=== PATIENT | female | born 1955 | race African-American/Black ===

== ENCOUNTER 2016-12-07 08:02 | Day surgery (SDC) | payer OTHER ==
[2016-12-03 10:13] LABS: Urine Bilirubin Negative (Negative); Urine Blood Negative /uL (Negative); Urine Color Yellow (Yellow); Urine Glucose Normal (Normal); Urine Ketone Negative (Negative); Urine Nitrite Negative (Negative); Urine RBC 1 /hpf (0 - 4); Urine Squamous Epithelial Cell FEW /hpf (<5); Urine Urobilinogen Normal (Negative)
[2016-12-03 10:14] LABS: Basophils # (auto) 0 uL; Basophils % (auto) 0.5 % (0.0-2.0); DEFINITIVE VIEW TRANSMISSION; Eosinophils # (auto) 0.2 uL; Hematocrit 40.5 % (36.0-46.0); Hemoglobin 12.9 g/dL (12.2-16.2); Lymphocytes # (auto) 2.7 uL; Lymphocytes % (auto) 39.8 % (10.0-50.0); Mean Corpuscular Hgb Conc. 31.8 g/dL (32.0-36.0); Mean Corpuscular Volume 84.9 fL (80.0-100.0); Monocytes # (auto) 0.7 uL; Monocytes % (auto) 9.8 % (0.0-12.0); Neutrophils # (auto) 3.2 uL; Neutrophils % (auto) 46.9 % (37.0-80.0); Platelet Count (auto) 319 10^3/uL (140-450); Red Cell Distribution Width 15.1 % (11.6-16.0); White Blood Cell 6.9 10^3/uL (4.4-10.8)
[2016-12-03 10:26] LABS: INR 1.06 (0.9-1.15); Partial Thromboplastin Time 27.2 sec (22.64-33.71); Prothrombin Time 10.9 sec (9.37-12.3)
[2016-12-03 10:43] LABS: Albumin 3.3 g/dL (3.4-5.0); BUN/Creatinine Ratio 15.5; Bilirubin, Total 0.3 mg/dL (0.2-1.0); Calcium 8.4 mg/dL (8.5-10.1); Potassium 3.4 mmol/L (3.5-5.1); Total Protein 7.6 g/dL (6.4-8.2)
[~2016-12-07] VITALS: Ht 152.4 cm; Wt 86.2 kg
[~2016-12-07 08:02] MED LIST: ALBUAER3 IN; COMIH INH; DICL1GEL26 TOP; FLUT1SPR5; FLUT250M2 INH; HYDR-2652 PO; LORA-622 PO; OMEP20CA5 OR; POTA20TA53 PO; TRAM50TA2 PO; TRAZ50TA2 PO; VERA240T17 PO
[2016-12-07] MEDS ORDERED: fentaNYL CITRATE 100 MCG/2 ML VL ONE (08:32)
[2016-12-07] MEDS ORDERED: PROPOFOL 10 MG/ML 20 ML IV ONE ×2 (08:33)
[2016-12-07] MEDS ORDERED: GLYCOPYRROLATE 0.2 MG/ML 1ML VIAL ONE (08:33)
[2016-12-07] MEDS ORDERED: ONDANSETRON HCL 4 MG/2 ML VIAL ONE (08:33)
[2016-12-07] MEDS ORDERED: KETOROLAC TROMETH 60MG/2ML VIAL IM ONE (08:33)
[2016-12-07 10:39] VITALS: BP 146/85
== END 2016-12-07 10:39 | disposition home or self-care (01) ==
LOC: GI 08:02
PROVIDERS: ATTEND Internal Medicine Gastroenterology
DX: Z12.11 Encounter for screening for malignant neoplasm of colon (principal); Z80.0 Family history of malignant neoplasm of digestive organs; J45.909 Unspecified asthma, uncomplicated; E66.9 Obesity, unspecified; Z98.51 Tubal ligation status; Z90.710 Acquired absence of both cervix and uterus
CPT/HCPCS: 36415; 45378; 80053; 81001; 85025; 85610; 85730; 88305; 88342; J1885; J2405; J2704; J3010; J7030

== ENCOUNTER 2016-12-08 19:49 | Emergency (ER) | payer OTHER ==
[~2016-12-08] VITALS: Ht 154.9 cm; Wt 86.2 kg
[2016-12-08 20:35] LABS: Hemoglobin 12.3 g/dL (12.2-16.2); SUSPECT VIEW TRANSMISSION
[2016-12-08 20:41] LABS: Mean Platelet Volume 9.5 fL (7.4-10.4)
[2016-12-08 20:46] LABS: Hematocrit 38.2 % (36.0-46.0); Mean Corpuscular Hemoglobin 27.5 pg (28.0-32.0); Mean Corpuscular Hgb Conc. 32.2 g/dL (32.0-36.0); Mean Corpuscular Volume 85.4 fL (80.0-100.0); Platelet Count (auto) 271 10^3/uL (140-450); Red Cell Distribution Width 13.9 % (11.6-16.0); White Blood Cell 6.3 10^3/uL (4.4-10.8)
[2016-12-08 20:49] LABS: Metamyelocytes % 0; Myelocytes % 0; Promyelocytes % 0; Reactive Lymphocytes 0
[2016-12-08 20:50] LABS: Albumin 3.5 g/dL (3.4-5.0); BUN/Creatinine Ratio 12.7; Bilirubin, Total 0.2 mg/dL (0.2-1.0); Potassium 3.2 mmol/L (3.5-5.1); Total Protein 7.3 g/dL (6.4-8.2)
[2016-12-08 21:31] VITALS: BP 171/94
[2016-12-08 22:30] LABS: Platelet Estimate Adequate; RBC Morphology Normal
== END 2016-12-08 21:51 | disposition home or self-care (01) ==
LOC: ER 19:52
DX: R33.9 Retention of urine, unspecified (principal); I10 Essential (primary) hypertension; Z46.6 Encounter for fitting and adjustment of urinary device; Z88.8 Allergy status to other drugs, medicaments and biological substances; Z79.899 Other long term (current) drug therapy
CPT/HCPCS: 36415; 51702; 80053; 85007; 85027

== ENCOUNTER → 2016-12-10 | Outpatient (CLI) | payer OTHER | END | disposition home or self-care (01) | LOC: LAB 09:41 | PROVIDERS: ATTEND Urology | DX: N39.41 Urge incontinence (principal) | CPT/HCPCS: 87086 ==

== ENCOUNTER → 2017-01-25 | Outpatient (CLI) | payer OTHER | END | disposition home or self-care (01) | LOC: LAB 11:52 | PROVIDERS: ATTEND Internal Medicine Gastroenterology | DX: K58.1 Irritable bowel syndrome with constipation (principal) | CPT/HCPCS: 36415; 82565; 84520 ==

== ENCOUNTER 2017-03-13 14:42 | Emergency (ER) | payer OTHER ==
[~2017-03-13] VITALS: Ht 152.4 cm; Wt 86.2 kg
[2017-03-13 15:17] VITALS: BP 99/60
[2017-03-13] MEDS ORDERED: HYDROcodone-ACET 5/325MG TAB PO ONE (17:30)
== END 2017-03-13 17:52 | disposition home or self-care (01) ==
LOC: ER 14:42
DX: S83.8X2A Sprain of other specified parts of left knee, initial encounter (principal); S09.90XA Unspecified injury of head, initial encounter; I10 Essential (primary) hypertension; Z88.8 Allergy status to other drugs, medicaments and biological substances; W01.0XXA Fall on same level from slipping, tripping and stumbling without subsequent striking against object, initial encounter; Y93.01 Activity, walking, marching and hiking; Y99.8 Other external cause status; Y92.89 Other specified places as the place of occurrence of the external cause
CPT/HCPCS: 70450; 73562

== ENCOUNTER → 2017-03-25 | Outpatient (CLI) | payer OTHER ==
[2017-03-25 11:41] LABS: Uric Acid 4.7 mg/dL (2.6-6.0)
[2017-03-25 11:46] LABS: Potassium 2.9 mmol/L (3.5-5.1)
[2017-03-25 15:15] LABS: Urine Bilirubin Negative (Negative); Urine Blood Negative /uL (Negative); Urine Color Yellow (Yellow); Urine Glucose Normal (Normal); Urine Hyaline Cast FEW /lpf (0 - 2); Urine Ketone Negative (Negative); Urine Mucus FEW (None Seen); Urine Nitrite Negative (Negative); Urine RBC 1 /hpf (0 - 4); Urine Squamous Epithelial Cell FEW /hpf (<5)
== END | disposition home or self-care (01) ==
LOC: LAB 10:15
PROVIDERS: ATTEND Internal Medicine
DX: I10 Essential (primary) hypertension (principal); E87.6 Hypokalemia
CPT/HCPCS: 36415; 80061; 81001; 82043; 84132; 84439; 84443; 84550; 86141

== ENCOUNTER 2017-04-22 17:15 | Emergency (ER) | payer OTHER ==
[~2017-04-22] VITALS: Ht 154.9 cm; Wt 86.2 kg
[2017-04-22 20:56] VITALS: BP 156/86
== END 2017-04-22 21:34 | disposition home or self-care (01) ==
LOC: ER 17:17
DX: R06.02 Shortness of breath (principal); R05 Cough; J45.909 Unspecified asthma, uncomplicated; I10 Essential (primary) hypertension; G89.29 Other chronic pain
CPT/HCPCS: 71020; 93005

== ENCOUNTER → 2017-07-13 | Outpatient (CLI) | payer OTHER ==
[~2017-07-13] MED LIST changes: -OMEP20CA5 OR; +OMEP20CA74 OR
== END | disposition home or self-care (01) ==
LOC: XYW 08:50
PROVIDERS: ATTEND Internal Medicine
DX: Z01.810 Encounter for preprocedural cardiovascular examination (principal)
CPT/HCPCS: 93306

== ENCOUNTER → 2017-08-11 | Outpatient (CLI) | payer OTHER ==
[~2017-08-11] MED LIST changes: +ADENOSINE 72 MG in GIVE UN-DILUTED 0 ML IV STA; +ALBUTEROL SULF 2.5 MG/0.5ML(0.5%) NEB SOLN ONE; +IPRATROPIUM BROM 0.5 MG/2.5ML INH SOL ONE
== END | disposition home or self-care (01) ==
LOC: XY 07:31
PROVIDERS: ATTEND Internal Medicine Cardiovascular Disease
DX: I20.9 Angina pectoris, unspecified (principal)
CPT/HCPCS: 78452; 93017; 94640; A9500; J0153

== ENCOUNTER → 2017-08-31 | Outpatient (CLI) | payer OTHER ==
[~2017-08-31] MED LIST changes: -ADENOSINE 72 MG in GIVE UN-DILUTED 0 ML IV STA; -ALBUTEROL SULF 2.5 MG/0.5ML(0.5%) NEB SOLN ONE; -IPRATROPIUM BROM 0.5 MG/2.5ML INH SOL ONE
== END | disposition home or self-care (01) ==
LOC: LAB 14:33
PROVIDERS: ATTEND Internal Medicine Cardiovascular Disease
DX: R00.0 Tachycardia, unspecified (principal); I12.9 Hypertensive chronic kidney disease with stage 1 through stage 4 chronic kidney disease, or unspecified chronic kidney disease; N18.2 Chronic kidney disease, stage 2 (mild)
CPT/HCPCS: 82088; 84244

== ENCOUNTER → 2017-09-29 | Outpatient (CLI) | payer OTHER ==
[~2017-09-29] MED LIST changes: -HYDR-2652 PO; +HYDR50TA15 PO
[2017-09-29 18:13] LABS: BUN/Creatinine Ratio 18.8; Potassium 3.7 mmol/L (3.5-5.1)
== END | disposition home or self-care (01) ==
LOC: LAB 15:22
PROVIDERS: ATTEND Internal Medicine Cardiovascular Disease
DX: I10 Essential (primary) hypertension (principal); J45.998 Other asthma
CPT/HCPCS: 36415; 80048; 83835; 84585

== ENCOUNTER → 2017-10-11 | Outpatient (CLI) | payer OTHER | END | disposition home or self-care (01) | LOC: LAB 12:23 | PROVIDERS: ATTEND Internal Medicine Cardiovascular Disease | DX: Z01.812 Encounter for preprocedural laboratory examination (principal) | CPT/HCPCS: 36415; 82565; 84520 ==

== ENCOUNTER → 2017-11-09 | Outpatient (CLI) | payer OTHER ==
[2017-11-09 13:04] LABS: BUN/Creatinine Ratio 16.8; Calcium 9.4 mg/dL (8.5-10.1); Potassium 4.4 mmol/L (3.5-5.1)
== END | disposition home or self-care (01) ==
LOC: LAB 11:48
PROVIDERS: ATTEND Internal Medicine Cardiovascular Disease
DX: I13.10 Hypertensive heart and chronic kidney disease without heart failure, with stage 1 through stage 4 chronic kidney disease, or unspecified chronic kidney disease (principal); N18.9 Chronic kidney disease, unspecified
CPT/HCPCS: 36415; 80048

== ENCOUNTER → 2018-01-17 | Outpatient (CLI) | payer OTHER | END | disposition home or self-care (01) | LOC: XY 07:57 | PROVIDERS: ATTEND Internal Medicine | DX: R10.9 Unspecified abdominal pain (principal) | CPT/HCPCS: 78226; A9537 ==

== ENCOUNTER → 2018-03-04 | Outpatient (CLI) | payer OTHER ==
[2018-03-04 09:27] LABS: Basophils # (auto) 0 uL; Basophils % (auto) 0.5 % (0.0-2.0); Eosinophils # (auto) 0.1 uL; Eosinophils % (auto) 2.1 % (0.0-7.0); Hematocrit 38.7 % (36.0-46.0); Hemoglobin 12.7 g/dL (12.2-16.2); Lymphocytes # (auto) 2.4 uL; Lymphocytes % (auto) 44.6 % (10.0-50.0); Mean Corpuscular Hemoglobin 28.9 pg (28.0-32.0); Mean Corpuscular Hgb Conc. 32.7 g/dL (32.0-36.0); Mean Corpuscular Volume 88.4 fL (80.0-100.0); Monocytes # (auto) 0.4 uL; Monocytes % (auto) 7.9 % (0.0-12.0); Neutrophils # (auto) 2.4 uL; Neutrophils % (auto) 44.9 % (37.0-80.0); Nucleated Red Blood Cells % 0.1 %; Platelet Count (auto) 302 10^3/uL (140-450); Red Blood Cells 4.38 10^6/uL (4.0-5.20); Red Cell Distribution Width 14.5 % (11.8-14.3); White Blood Cell 5.4 10^3/uL (4.4-10.8)
[2018-03-04 09:42] LABS: Urine Bacteria FEW /hpf (None Seen); Urine Blood Negative /uL (Negative); Urine Mucus FEW (None Seen); Urine Specific Gravity 1.024 (1.001-1.035); Urine WBC 8 /hpf (0 - 5)
[2018-03-04 09:59] LABS: Albumin 3.5 g/dL (3.4-5.0); BUN/Creatinine Ratio 18.3; Bilirubin, Total 0.4 mg/dL (0.2-1.0); Calcium 8.5 mg/dL (8.5-10.1); Potassium 4.6 mmol/L (3.5-5.1); Total Protein 7.9 g/dL (6.4-8.2)
== END | disposition home or self-care (01) ==
LOC: LAB 09:00
PROVIDERS: ATTEND Internal Medicine
DX: I12.9 Hypertensive chronic kidney disease with stage 1 through stage 4 chronic kidney disease, or unspecified chronic kidney disease (principal); N18.3 Chronic kidney disease, stage 3 (moderate); E55.9 Vitamin D deficiency, unspecified; J45.909 Unspecified asthma, uncomplicated
CPT/HCPCS: 36415; 80053; 80061; 81001; 82043; 83970; 84439; 84443; 84550; 85025; 85652

== ENCOUNTER 2018-03-28 07:43 | Emergency (ER) | payer OTHER ==
[~2018-03-28] VITALS: Ht 154.9 cm; Wt 86.2 kg
[~2018-03-28 07:43] MED LIST changes: +ETOD1TAB60 PO; +LINA290C PO; +SPIR50TA23 PO
[2018-03-28] MEDS ORDERED: CARISOPRODOL 350 MG TAB PO ONE (08:00)
[2018-03-28] MEDS ORDERED: KETOROLAC TROMETH 60MG/2ML VIAL IM ONE (08:00)
[2018-03-28 09:16] LABS: Basophils # (auto) 0 uL; Basophils % (auto) 0.3 % (0.0-2.0); Eosinophils # (auto) 0.1 uL; Hematocrit 35.1 % (36.0-46.0); Hemoglobin 11.5 g/dL (12.2-16.2); Lymphocytes # (auto) 2.1 uL; Lymphocytes % (auto) 26.1 % (10.0-50.0); Mean Corpuscular Hemoglobin 28.8 pg (28.0-32.0); Mean Corpuscular Hgb Conc. 32.7 g/dL (32.0-36.0); Mean Corpuscular Volume 88.2 fL (80.0-100.0); Monocytes # (auto) 0.7 uL; Neutrophils # (auto) 5.1 uL; Neutrophils % (auto) 63.6 % (37.0-80.0); Platelet Count (auto) 327 10^3/uL (140-450); Red Blood Cells 3.98 10^6/uL (4.0-5.20); Red Cell Distribution Width 14.3 % (11.8-14.3)
[2018-03-28 09:51] LABS: Albumin 3.5 g/dL (3.4-5.0); BUN/Creatinine Ratio 16.9; Bilirubin, Total 0.3 mg/dL (0.2-1.0); Calcium 8.7 mg/dL (8.5-10.1); Potassium 4.6 mmol/L (3.5-5.1); Total Protein 7.5 g/dL (6.4-8.2)
[2018-03-28 10:49] VITALS: BP 157/76
== END 2018-03-28 12:18 | disposition home or self-care (01) ==
LOC: ER 07:43
DX: M79.7 Fibromyalgia (principal); I10 Essential (primary) hypertension; J45.909 Unspecified asthma, uncomplicated; Z90.710 Acquired absence of both cervix and uterus; Z90.49 Acquired absence of other specified parts of digestive tract; Z90.89 Acquired absence of other organs
CPT/HCPCS: 36415; 73502; 80053; 85025; 96372; 99285; J1885

== ENCOUNTER → 2018-05-10 | Outpatient (CLI) | payer OTHER ==
[2018-05-10 09:56] LABS: Basophils # (auto) 0.1 uL; Eosinophils # (auto) 0.1 uL; Eosinophils % (auto) 2.6 % (0.0-7.0); Hematocrit 39.6 % (36.0-46.0); Hemoglobin 12.7 g/dL (12.2-16.2); Lymphocytes # (auto) 2.7 uL; Lymphocytes % (auto) 47.3 % (10.0-50.0); Mean Corpuscular Hemoglobin 28.3 pg (28.0-32.0); Mean Corpuscular Volume 88.3 fL (80.0-100.0); Monocytes # (auto) 0.4 uL; Monocytes % (auto) 7.8 % (0.0-12.0); Neutrophils # (auto) 2.4 uL; Neutrophils % (auto) 41.3 % (37.0-80.0); Nucleated Red Blood Cells % 0.1 %; Platelet Count (auto) 292 10^3/uL (140-450); Red Blood Cells 4.49 10^6/uL (4.0-5.20); Red Cell Distribution Width 14.1 % (11.8-14.3); White Blood Cell 5.7 10^3/uL (4.4-10.8)
[2018-05-10 10:27] LABS: Albumin 3.4 g/dL (3.4-5.0); BUN/Creatinine Ratio 15.3; Bilirubin, Total 0.2 mg/dL (0.2-1.0); Calcium 8.7 mg/dL (8.5-10.1); Potassium 3.8 mmol/L (3.5-5.1); Total Protein 7.8 g/dL (6.4-8.2)
== END | disposition home or self-care (01) ==
LOC: LAB 09:32
PROVIDERS: ATTEND Internal Medicine
DX: I12.9 Hypertensive chronic kidney disease with stage 1 through stage 4 chronic kidney disease, or unspecified chronic kidney disease (principal); N18.3 Chronic kidney disease, stage 3 (moderate); E55.9 Vitamin D deficiency, unspecified; D64.9 Anemia, unspecified; J44.9 Chronic obstructive pulmonary disease, unspecified; E66.01 Morbid (severe) obesity due to excess calories; M19.90 Unspecified osteoarthritis, unspecified site
CPT/HCPCS: 36415; 80053; 85025

== ENCOUNTER → 2018-12-15 | Outpatient (CLI) | payer OTHER ==
[~2018-12-15] MED LIST changes: -SPIR50TA23 PO; +SPIR50TA5 PO
[2018-12-15 15:58] LABS: Basophils # (auto) 0 uL; Basophils % (auto) 0.6 % (0.0-2.0); Eosinophils # (auto) 0.1 uL; Eosinophils % (auto) 2.6 % (0.0-7.0); Hematocrit 38.5 % (36.0-46.0); Hemoglobin 12.7 g/dL (12.2-16.2); Lymphocytes # (auto) 2.3 uL; Lymphocytes % (auto) 47.3 % (10.0-50.0); Mean Corpuscular Hemoglobin 29.5 pg (28.0-32.0); Mean Corpuscular Volume 89.2 fL (80.0-100.0); Monocytes # (auto) 0.5 uL; Monocytes % (auto) 10.4 % (0.0-12.0); Neutrophils # (auto) 1.9 uL; Neutrophils % (auto) 39.1 % (37.0-80.0); Nucleated Red Blood Cells % 0.2 %; Platelet Count (auto) 263 10^3/uL (140-450); Red Blood Cells 4.32 10^6/uL (4.0-5.20); Red Cell Distribution Width 14.2 % (11.8-14.3); White Blood Cell 4.9 10^3/uL (4.4-10.8)
== END | disposition home or self-care (01) ==
LOC: LAB 15:30
PROVIDERS: ATTEND Internal Medicine
DX: J45.909 Unspecified asthma, uncomplicated (principal)
CPT/HCPCS: 36415; 82785; 85025

== ENCOUNTER → 2018-12-23 | Outpatient (CLI) | payer OTHER | END | disposition home or self-care (01) | LOC: RT 08:35 | PROVIDERS: ATTEND Internal Medicine | DX: J45.909 Unspecified asthma, uncomplicated (principal) | CPT/HCPCS: 94010; 94640 ==

== ENCOUNTER → 2018-12-28 | Outpatient (CLI) | payer OTHER | END | disposition home or self-care (01) | LOC: XYW 08:25 | PROVIDERS: ATTEND Internal Medicine | DX: M87.051 Idiopathic aseptic necrosis of right femur (principal) | CPT/HCPCS: 93306 ==

== ENCOUNTER → 2019-05-03 | Outpatient (CLI) | payer OTHER ==
[~2019-05-03] MED LIST changes: -ETOD1TAB60 PO; -FLUT1SPR5; +GABA300C10 PO; -HYDR50TA15 PO; -LINA290C PO; -POTA20TA53 PO; -TRAM50TA2 PO; -TRAZ50TA2 PO
[2019-05-03 11:04] LABS: Basophils # (auto) 0.1 uL; Basophils % (auto) 1.1 % (0.0-2.0); Eosinophils # (auto) 0.2 uL; Eosinophils % (auto) 2.9 % (0.0-7.0); Hemoglobin 12.1 g/dL (12.2-16.2); Lymphocytes # (auto) 2.4 uL; Lymphocytes % (auto) 45.8 % (10.0-50.0); Mean Corpuscular Hemoglobin 28.5 pg (28.0-32.0); Mean Corpuscular Hgb Conc. 33.6 g/dL (32.0-36.0); Mean Corpuscular Volume 84.9 fL (80.0-100.0); Monocytes # (auto) 0.4 uL; Monocytes % (auto) 7.6 % (0.0-12.0); Neutrophils # (auto) 2.3 uL; Neutrophils % (auto) 42.6 % (37.0-80.0); Platelet Count (auto) 268 10^3/uL (140-450); Red Blood Cells 4.25 10^6/uL (4.0-5.20); Red Cell Distribution Width 14.8 % (11.8-14.3); White Blood Cell 5.3 10^3/uL (4.4-10.8)
[2019-05-03 11:19] LABS: Urine Bacteria MOD /hpf (None Seen); Urine Blood TRACE /uL (Negative); Urine Mucus FEW (None Seen); Urine Specific Gravity 1.024 (1.001-1.035); Urine WBC 12 /hpf (0 - 5)
[2019-05-03 11:44] LABS: Albumin 3.6 g/dL (3.4-5.0); Calcium 8.9 mg/dL (8.5-10.1); Potassium 3.8 mmol/L (3.5-5.1)
[2019-05-03 11:50] LABS: BUN/Creatinine Ratio 16.7; Bilirubin, Total 0.3 mg/dL (0.2-1.0)
== END | disposition home or self-care (01) ==
LOC: LAB 10:09
PROVIDERS: ATTEND Internal Medicine
DX: I10 Essential (primary) hypertension (principal); M85.80 Other specified disorders of bone density and structure, unspecified site
CPT/HCPCS: 36415; 80053; 80061; 81001; 82043; 82306; 84439; 84443; 85025; 85652

== ENCOUNTER 2019-07-18 13:13 | Emergency (ER) | payer OTHER ==
[~2019-07-18] VITALS: Ht 154.9 cm; Wt 86.2 kg
[2019-07-18 14:31] LABS: Hemoglobin 12.4 g/dL (12.2-16.2)
[2019-07-18 14:33] LABS: Hematocrit 38.4 % (36.0-46.0); Mean Corpuscular Hemoglobin 27.1 pg (28.0-32.0); Mean Corpuscular Hgb Conc. 32.4 g/dL (32.0-36.0); Mean Corpuscular Volume 83.9 fL (80.0-100.0); Platelet Count (auto) 283 10^3/uL (140-450); Red Blood Cells 4.58 10^6/uL (4.0-5.20); Red Cell Distribution Width 15.8 % (11.8-14.3); White Blood Cell 5.7 10^3/uL (4.4-10.8)
[2019-07-18 14:35] LABS: Band Neutrophils % (manual) 0; Basophils % (manual) 0 (0.0-2.0); Blast Cells 0; Metamyelocytes % 0; Myelocytes % 0; Promyelocytes % 0; Reactive Lymphocytes 0
[2019-07-18 14:44] LABS: Alanine Aminotransferase 17 U/L (13-56); Albumin 3.6 g/dL (3.4-5.0); Anion Gap 7 (5-15); Blood Urea Nitrogen 25 mg/dL (7-18); Calcium 9.1 mg/dL (8.5-10.1); Carbon Dioxide 26 mmol/L (21-32); Chloride 107 mmol/L (98-107); Glucose 87 mg/dL (74-106); Lipase 134 U/L (73-393); Potassium 4.1 mmol/L (3.5-5.1); Sodium 140 mmol/L (136-145)
[2019-07-18 14:50] LABS: Alkaline Phosphatase 139 U/L (45-117); Aspartate Aminotransferase 16 U/L (15-37); BUN/Creatinine Ratio 20.3; Bilirubin, Total 0.3 mg/dL (0.2-1.0); GFR African American 57 mL/min; GFR Non-African American 47 mL/min; Total Protein 8.4 g/dL (6.4-8.2)
[2019-07-18 15:21] LABS: Eosinophils % (manual) 3 (0-7); Lymphocytes % (manual) 51 (10.0-50.0); Monocytes % (manual) 8 (0-12)
[2019-07-18 17:12] LABS: Urine Bacteria MOD /hpf (None Seen); Urine Blood Negative /uL (Negative); Urine Mucus FEW (None Seen); Urine Specific Gravity 1.027 (1.001-1.035); Urine WBC 13 /hpf (0 - 5)
[2019-07-18 17:56] VITALS: BP 143/79
== END 2019-07-18 18:07 | disposition home or self-care (01) ==
LOC: ER 13:13
DX: N39.0 Urinary tract infection, site not specified (principal); N20.0 Calculus of kidney; I10 Essential (primary) hypertension; J45.909 Unspecified asthma, uncomplicated; Z88.6 Allergy status to analgesic agent; Z88.8 Allergy status to other drugs, medicaments and biological substances; Z90.710 Acquired absence of both cervix and uterus; Z90.89 Acquired absence of other organs
CPT/HCPCS: 36415; 74176; 80053; 81001; 83690; 84484; 85007; 85027; 93005

== ENCOUNTER → 2019-07-27 | Outpatient (CLI) | payer OTHER ==
[2019-07-27 15:29] LABS: Urine Bacteria NONE SEEN /hpf (None Seen); Urine Blood Negative /uL (Negative); Urine Specific Gravity 1.016 (1.001-1.035); Urine WBC 1 /hpf (0 - 5)
== END | disposition home or self-care (01) ==
LOC: LAB 14:52
PROVIDERS: ATTEND Internal Medicine
DX: N39.0 Urinary tract infection, site not specified (principal); I10 Essential (primary) hypertension
CPT/HCPCS: 81001

== ENCOUNTER 2019-08-17 16:44 | Inpatient (IN) | payer OTHER ==
[~2019-08-17] VITALS: Ht 152.4 cm; Wt 91.0 kg
[2019-08-17] MEDS ORDERED: SODIUM CHLORIDE 0.9% 1,000 ML IVB ONE (18:10)
[2019-08-17] MEDS ORDERED: KETOROLAC TROMETH 30 MG/ML 1ML VIAL IV ONE (18:15)
[2019-08-17 19:01] LABS: Basophils # (auto) 0.1 uL; Eosinophils # (auto) 0.1 uL; Eosinophils % (auto) 2.1 % (0.0-7.0); Hematocrit 34.9 % (36.0-46.0); Hemoglobin 11.3 g/dL (12.2-16.2); Lymphocytes # (auto) 3.1 uL; Lymphocytes % (auto) 48.4 % (10.0-50.0); Mean Corpuscular Hemoglobin 27.9 pg (28.0-32.0); Mean Corpuscular Hgb Conc. 32.5 g/dL (32.0-36.0); Mean Corpuscular Volume 86.1 fL (80.0-100.0); Monocytes # (auto) 0.7 uL; Monocytes % (auto) 11.1 % (0.0-12.0); Neutrophils # (auto) 2.4 uL; Neutrophils % (auto) 37.4 % (37.0-80.0); Nucleated Red Blood Cells % 0.1 %; Platelet Count (auto) 263 10^3/uL (140-450); Red Blood Cells 4.06 10^6/uL (4.0-5.20); Red Cell Distribution Width 16.2 % (11.8-14.3); White Blood Cell 6.5 10^3/uL (4.4-10.8)
[2019-08-17 19:16] LABS: Albumin 3.4 g/dL (3.4-5.0); BUN/Creatinine Ratio 13.6; Calcium 8.7 mg/dL (8.5-10.1); Magnesium 2.4 mg/dL (1.6-2.6); Potassium 4.1 mmol/L (3.5-5.1)
[2019-08-17 19:19] LABS: Bilirubin, Total 0.2 mg/dL (0.2-1.0); Total Protein 7.5 g/dL (6.4-8.2)
[2019-08-17] MEDS ORDERED: HYDROcodone-ACET 5/325MG TAB PO PRN (21:15)
[2019-08-17] MEDS ORDERED: ALBUTEROL SULF 2.5 MG/0.5ML(0.5%) NEB SOLN NEB PRN (21:15)
[2019-08-17] MEDS ORDERED: TEMAZEPAM 15 MG CAP PO PRN (21:15)
[2019-08-17 21:28] LABS: Urine Bacteria MOD /hpf (None Seen); Urine Blood Negative /uL (Negative); Urine Mucus FEW (None Seen); Urine Specific Gravity 1.025 (1.001-1.035); Urine WBC 10 /hpf (0 - 5)
[2019-08-17] MEDS ORDERED: cefTRIAXone 1GM/50ML D5W 50 ML IV ONE (22:00)
[2019-08-17] MEDS: MORPHINE SULFATE 4 MG/ML SYR/VIAL IV PRN ×2 (22:24→22:46)
[2019-08-17] MEDS: GABAPENTIN 300 MG CAP PO SCH (22:24)
[2019-08-17] MEDS: ONDANSETRON HCL 4 MG/2 ML VIAL IV PRN (22:25)
[2019-08-17 22:54] VITALS: BP 165/85
--- NOTE | 2019-08-17 22:54 | NUR ---
MS admit from ER JAMEELYAS admitted to tele/MS after SBAR received from Greg XIE in the ER. Patient oriented to Rito Bolton, primary RN, unit, room, bed, and unit policies regarding patient care and visiting hours. Patient weighed by bedscale and encouraged to call if they need something. All questions and concerns addressed, patient verbalized understanding.
[2019-08-17 23:21] VITALS: BP 166/85
--- NOTE | 2019-08-17 23:27 | NUR ---
PT WAS ASSESSED FOR PRN TX. PT IS RESTING WITH NO DISTRESS NOTED. PT DENIES ANY SOB. TX IS NOT INDICATED AT THIS TIME, PT IS AWARE TO PAGE IF TX NEEDED. POX 96% ON ROOM AIR. RR 20 HR 73. B/S CLEAR.
[2019-08-17 23:29] VITALS: BP 166/85
--- NOTE | 2019-08-18 04:15 | NUR ---
BLOOD PRESSURE REASSESSMENT Patient's blood pressure is 135/85, heart rate 81, RR 16, SPO2 96%, and temp 98.3.
[2019-08-18 06:17] LABS: Basophils # (auto) 0 uL; Basophils % (auto) 0.7 % (0.0-2.0); Eosinophils # (auto) 0.1 uL; Eosinophils % (auto) 2.4 % (0.0-7.0); Hematocrit 32.4 % (36.0-46.0); Hemoglobin 10.7 g/dL (12.2-16.2); Lymphocytes # (auto) 2.3 uL; Lymphocytes % (auto) 50.1 % (10.0-50.0); Mean Corpuscular Hemoglobin 28.4 pg (28.0-32.0); Monocytes # (auto) 0.5 uL; Neutrophils # (auto) 1.6 uL; Neutrophils % (auto) 34.8 % (37.0-80.0); Nucleated Red Blood Cells % 0.1 %; Platelet Count (auto) 243 10^3/uL (140-450); Red Blood Cells 3.77 10^6/uL (4.0-5.20); White Blood Cell 4.6 10^3/uL (4.4-10.8)
[2019-08-18 06:38] LABS: Potassium 3.6 mmol/L (3.5-5.1)
[2019-08-18 06:45] LABS: BUN/Creatinine Ratio 14.2; Calcium 8.1 mg/dL (8.5-10.1)
--- NOTE | 2019-08-18 07:40 | NUR ---
Opening Shift Note Assumed care of patient, awake and alert x4. No S/S of distress/SOB, lower abdominal pain of 5/10, will medicate with pain meds per MD order. Respirations are even and unlabored on RA. Updated on POC and instructed to call for assistance as needed, patient verbalized understanding. Bed locked in lowest position, side rails up x2, call light within reach. Will continue to monitor for changes Q1hr and PRN.
[2019-08-18] MEDS: MORPHINE SULFATE 4 MG/ML SYR/VIAL IV PRN ×2 (08:24→18:08)
--- NOTE | 2019-08-18 08:56 | NUR ---
PT. ASSESSED FOR PRN. MN. TX., NO RESP. DISTRESS OR SOB NOTED. BS. ARE CLEAR AND DIMINISHED AT THE BASES. HR=76,RR=14,SP02=96% ON RA. MN. TX. NOT INDICATED AT THIS TIME, NO TX. GIVE. PT. IS AWARE SHE MAY CALL IF NEEDED.
[2019-08-18 09:00] VITALS: BP 173/81
[2019-08-18] MEDS ORDERED: cefTRIAXone 1GM/50ML D5W 50 ML IV SCH (09:00)
[2019-08-18] MEDS ORDERED: PANTOPRAZOLE 40 MG TAB PO SCH (10:00)
[2019-08-18] MEDS: ONDANSETRON HCL 4 MG/2 ML VIAL IV PRN ×2 (10:08→18:08)
[2019-08-18] MEDS: GABAPENTIN 300 MG CAP PO SCH ×2 (10:10→21:33)
[2019-08-18] MEDS: SPIRONOLACTONE 25 MG TAB PO SCH (10:11)
[2019-08-18] MEDS: VERAPAMIL HCL 120 mg ER tab PO SCH (10:11)
--- NOTE | 2019-08-18 11:30 | NUR ---
SPOKE WITH UROLOGIST DR. HUA HE WILL COME SEE THE PATIENT LATER ON TODAY AND INSTRUCTED TO PROVIDE THE PATIENT WITH A STRAINER FOR ALL URINE. WILL FOLLOW THROUGH WITH ORDERS.
[2019-08-18 13:00] VITALS: BP 146/69
[2019-08-18] MEDS ORDERED: HYOSCYAMINE SULF 0.125 MG ODT TAB PO PRN (13:45)
[2019-08-18 14:42] LABS: INR 0.96 (0.9-1.15)
[2019-08-18] MEDS: ACETAMINOPHEN 325 MG TAB PO PRN (16:42)
--- NOTE | 2019-08-18 16:42 | NUR ---
PT. C/O HEADACHE PAIN 07/08, REQUESTING TYLENOL FOR PAIN MEDICATION. WILL ADMINISTER PER MD ORDERS.
[2019-08-18 17:00] VITALS: BP 160/79
--- NOTE | 2019-08-18 18:45 | NUR ---
Care endorsed to Day shift nurse. No distress noted at this time.
--- NOTE | 2019-08-18 19:35 | NUR ---
Opening Shift Note Assumed care of patient, awake and alert. No S/S of distress/SOB or pain. Patient states that she feels nauseous but did not request any PRN Zofran. Instructed on POC and to call for assist PRN, will continue to monitor for changes Q1hr and PRN.
--- NOTE | 2019-08-18 21:10 | NUR ---
Respiratory note:PT ASSESSED FOR PRN MED NEB TX. HR 83, RR 14, SPO2 95% ON R/A. NO SIGNS OF ANY RESPIRATORY DISTRESS NOTED. ADVISED PT TO CALL IF TX IS NEEDED. RT NAME AND PAGER NUMBER WRITTEN ON PT'S BOARD.
[2019-08-18] MEDS: PANTOPRAZOLE 40 MG TAB PO SCH (21:33)
[2019-08-18 21:48] VITALS: BP 153/73
[2019-08-19 05:27] VITALS: BP 147/60
[2019-08-19 07:15] LABS: Calcium 8.3 mg/dL (8.5-10.1); Potassium 3.7 mmol/L (3.5-5.1)
[2019-08-19] MEDS ORDERED: FLUMAZENIL 0.1 MG/ML INJ 10ML MDV IV ONE (08:51)
[2019-08-19] MEDS ORDERED: NALOXONE HCL 0.4 MG/ML VIAL ONE (08:51)
[2019-08-19] MEDS ORDERED: SODIUM CHLORIDE LOCK 10 ML ONE (08:51)
[2019-08-19] MEDS ORDERED: LIDOCAINE VISCOUS 2% 15ML UD ONE (08:52)
[2019-08-19] MEDS ORDERED: diphenhdrAMINE HCL 50 MG/1 ML VL ONE (08:52)
[2019-08-19 09:00] VITALS: BP 153/75
[2019-08-19] MEDS: MIDAZOLAM HCL 5 MG/ML-1ML VIAL ONE ×2 (09:08→09:11)
[2019-08-19] MEDS: fentaNYL CITRATE 100 MCG/2 ML VL ONE ×2 (09:08→09:11)
--- NOTE | 2019-08-19 10:14 | NUR ---
PT RETURNED TO FLOOR FROM EGD. PT RESTING IN BED, NO DISTRESS NOTED. VITALS:97.4, 167/82, HR 91, 02 97, RR 18. WILL A.M. BP MEDS.
[2019-08-19] MEDS: GABAPENTIN 300 MG CAP PO SCH ×2 (10:20→22:40)
[2019-08-19] MEDS: PANTOPRAZOLE 40 MG TAB PO SCH ×2 (10:20→22:40)
[2019-08-19] MEDS: SPIRONOLACTONE 25 MG TAB PO SCH (10:20)
[2019-08-19] MEDS: VERAPAMIL HCL 120 mg ER tab PO SCH (10:20)
[2019-08-19] MEDS: SUCRALFATE 1 GM/10 ML ORAL SUSP PO SCH ×3 (10:22→22:40)
--- NOTE | 2019-08-19 12:40 | NUR ---
Respiratory note: MEDNEB CHECK. PT IN NO RESPIRATORY DISTRESS. SPO2 96% ON RA HR 65 RR 20 B/S CLEAR. TX NOT INDICATED AT THIS TIME. PT AWARE TO HAVE RT PAGED IF THEY BECOME SOB.
[2019-08-19 13:00] VITALS: BP 141/71
[2019-08-19] MEDS: MORPHINE SULFATE 4 MG/ML SYR/VIAL IV PRN (16:24)
[2019-08-19] MEDS: ONDANSETRON HCL 4 MG/2 ML VIAL IV PRN (16:25)
[2019-08-19 17:00] VITALS: BP 158/68
[2019-08-19] MEDS ORDERED: cefTRIAXone 1GM/50ML D5W 50 ML IV ONE (17:15)
[2019-08-19] MEDS ORDERED: hydrALAZINE HCL 20 MG/ML VL IV PRN (17:30)
--- NOTE | 2019-08-19 18:06 | NUR ---
SENIOR COURTROOM CLERK REPORTS PT BP IS 158/60, HR 94. REASSESSED BP. BP IS 150/71, HR 81. WILL CONTINUE TO MONITOR.
--- NOTE | 2019-08-19 19:05 | NUR ---
PT ASSESSED FOR PRN TX. PT IS RESTING WITH NO DISTRESS NOTED. PT DENIES SOB. TX NOT INDICATED AT THIS TIME. PT IS AWARE TO PAGE IF TX NEEDED. HR 78 RR 20 POX 91% ON ROOM AIR. B/S CLEAR.
--- NOTE | 2019-08-19 19:10 | NUR ---
Opening Shift Note Assumed care of patient, awake and alert. No S/S of distress/SOB or pain. Instructed on POC and to call for assist PRN, will continue to monitor for changes Q1hr and PRN.
[2019-08-19 22:00] VITALS: BP 124/76
[2019-08-20 05:49] VITALS: BP 121/74
[2019-08-20] MEDS: SUCRALFATE 1 GM/10 ML ORAL SUSP PO SCH ×4 (06:55→21:52)
[2019-08-20 06:56] LABS: Basophils # (auto) 0 uL; Basophils % (auto) 0.3 % (0.0-2.0); Eosinophils # (auto) 0.1 uL; Eosinophils % (auto) 1.7 % (0.0-7.0); Hematocrit 33.5 % (36.0-46.0); Hemoglobin 10.9 g/dL (12.2-16.2); Lymphocytes # (auto) 1.9 uL; Lymphocytes % (auto) 40.7 % (10.0-50.0); Mean Corpuscular Hgb Conc. 32.5 g/dL (32.0-36.0); Mean Corpuscular Volume 86.1 fL (80.0-100.0); Monocytes # (auto) 0.4 uL; Monocytes % (auto) 9.1 % (0.0-12.0); Neutrophils # (auto) 2.3 uL; Neutrophils % (auto) 48.2 % (37.0-80.0); Nucleated Red Blood Cells % 0.1 %; Platelet Count (auto) 231 10^3/uL (140-450); Red Blood Cells 3.89 10^6/uL (4.0-5.20); Red Cell Distribution Width 16.2 % (11.8-14.3); White Blood Cell 4.8 10^3/uL (4.4-10.8)
[2019-08-20 07:10] LABS: Albumin 2.9 g/dL (3.4-5.0); Calcium 8.2 mg/dL (8.5-10.1); Potassium 3.6 mmol/L (3.5-5.1)
[2019-08-20 07:14] LABS: BUN/Creatinine Ratio 13.6; Bilirubin, Total 0.2 mg/dL (0.2-1.0); Total Protein 6.6 g/dL (6.4-8.2)
[2019-08-20 09:00] VITALS: BP 135/75
[2019-08-20] MEDS: cefTRIAXone 1GM/50ML D5W 50 ML IV SCH (09:46)
[2019-08-20] MEDS: VERAPAMIL HCL 120 mg ER tab PO SCH (09:47)
[2019-08-20] MEDS: GABAPENTIN 300 MG CAP PO SCH ×2 (09:48→21:52)
[2019-08-20] MEDS: SPIRONOLACTONE 25 MG TAB PO SCH (09:48)
[2019-08-20] MEDS: PANTOPRAZOLE 40 MG TAB PO SCH ×2 (09:48→21:52)
[2019-08-20] MEDS: ONDANSETRON HCL 4 MG/2 ML VIAL IV PRN ×2 (10:43→17:07)
[2019-08-20] MEDS: MORPHINE SULFATE 4 MG/ML SYR/VIAL IV PRN ×2 (10:43→17:07)
--- NOTE | 2019-08-20 11:35 | NUR ---
RT NOTE: WENT TO PTS ROOM TO ASSESS PRN BREATHING TX, NO S/S OF SOB. HR 77, RR 18, SPO2 96% ON RA. WILL CONTINUE TO MONITOR PT.
--- NOTE | 2019-08-20 12:03 | NUR ---
PT REPORTS IV HURTS. ASSESSED IV SITE, SMALL AMOUNT OF SWELLING AND ERYTHEMA NOTED AT SITE. IV DC'D AND PRESSURE DRESSING APPLIED. NEW IV STARTED USING STERILE TECHNIQUE ON THIRD ATTEMPT WITH VEIN FINDER. NEW IV IS LEFT WRIST 22 G, FLUSHED WITH 0.9 NS. PT TOLERATED PROCEDURE WELL, WILL CONTINUE TO MONITOR.
[2019-08-20 13:00] VITALS: BP 145/84
--- NOTE | 2019-08-20 15:17 | NUR ---
PT IV LEAKING WHEN TRYING TO ADMINISTER PRN BP MED. IV DC'D, PRESSURE DRESSING APPLIED. ATTEMPTED NEW IV X2 WITH VEIN FINDER USING STERILE TECHNIQUE, UNSUCCESSFUL. SPOKE WITH CHARGE. CHARGE INSERTED NEW IV USING STERILE TECHNIQUE RFA 22 G. PT TOLERATED PROCEDURE WELL. PRN BP MED GIVEN FOR BP 172/77, HR 74. PT REPORTS SHE HAS ONLY VOIDED ONCE YESTERDAY AND ONCE TODAY. SPOKE WITH DR RASHID, NOTIFIED PT ON DIURETIC WITH HIGH BP AND HAS VOIDED ONCE A DAY. AWARE. REPOTS HE WILL PUT IN ORDER FOR ULTRASOUND, WILL CONTINUE TO MONITOR. Addendum: 08/20/19 at 1523 by AUDELIA BROCK RN NO STONES HAVE BEEN FOUND WHEN STRAINING PT URINE.
--- NOTE | 2019-08-20 16:11 | NUR ---
BOARD TURNER REPORTS PT IS POSITIVE FOR RIGHT LEG DVT. CALLED PBX AND PAGED DR RASHID. CALLED BACK. NOTIFIED MD PALENCIA RLE DVT. NEW ORDERS FOR COUMADIN PER PHARMACY PROTOCOL AND LOVENOX.
--- NOTE | 2019-08-20 16:19 | NUR ---
CALLED PHARMACY AND CLARIFIED COUMADIN AND LOVENOX ORDERS AND REPORTED TO PHARMACY THERAPY NEEDS TO START TODAY PER MD ORDER.
--- NOTE | 2019-08-20 16:29 | NUR ---
PHARMACY CALLED. PT HAS ADVERSE REACTION TO COUMADIN. PHARMACY REPORTS THEY NEED CLARIFICATION OF PATIENT REACTION WHEN SHE TAKES COUMADIN. ASKED PATIENT WHAT REACTION SHE HAS WHEN SHE TAKES COUMADIN. PT REPORTS SHE GETS LARGE BRUISES. ASKED PT IF SHE GETS ANY OTHER SYMPTOMS, SOB, DIFFICULTY BREATHING, RASHES, ECT.. PT REPORTS,"NO JUST LARGE BRUISES." PHARMACY NOTIFIED. PHARMACY REPORTS TO MONITOR PATIENT AND LET DR RASHID KNOW. CALLED PBX AND PAGED DR RACHID MD NOTIFIED OF PT REACTION TO COUMADIN. REPORTS TO KEEP PATIENT ON COUMADIN AND LOVENOX WITH PATIENT PERMISSION. ASKED PT PERMISSION TO PUT HER ON THERE MEDICATIONS, PATIENT AGREED, WILL CONTINUE TO MONITOR.
[2019-08-20 17:00] VITALS: BP 138/109
[2019-08-20] MEDS: ENOXAPARIN SOD 100 MG/1 ML SYRINGE SC SCH (17:06)
[2019-08-20 17:55] LABS: Partial Thromboplastin Time 26.2 sec (23.64-32.05)
[2019-08-20] MEDS ORDERED: WARFARIN SODIUM 5 MG TAB PO ONE (18:45)
[2019-08-20 19:28] VITALS: BP 138/109
--- NOTE | 2019-08-20 21:14 | NUR ---
RT NOTE: PT ASSESSED FOR PRN MED NEB TX, PT ALERT AND ORIENTATED. PT DENIES SOB AT THIS TIME. BS CLEAR. PT ON ROOM AIR SPO2 97% HR 96, RR 16. NO RESPIRATORY DISTRESS NOTED AT THIS TIME. PT NOTIFIED TO HAVE RT PAGED IF SOB OCCURS.
--- NOTE | 2019-08-20 22:05 | NUR ---
Pt vomiting. Offered Zofran iv as ordered but pt refused,
[2019-08-21 06:00] VITALS: BP 145/78
[2019-08-21 06:25] LABS: Basophils # (auto) 0 uL; Basophils % (auto) 0.6 % (0.0-2.0); Eosinophils # (auto) 0.1 uL; Eosinophils % (auto) 1.2 % (0.0-7.0); Hematocrit 32.8 % (36.0-46.0); Hemoglobin 10.9 g/dL (12.2-16.2); Lymphocytes # (auto) 2.3 uL; Lymphocytes % (auto) 39.8 % (10.0-50.0); Mean Corpuscular Hemoglobin 28.4 pg (28.0-32.0); Mean Corpuscular Hgb Conc. 33.4 g/dL (32.0-36.0); Mean Corpuscular Volume 85.1 fL (80.0-100.0); Monocytes # (auto) 0.5 uL; Monocytes % (auto) 8.9 % (0.0-12.0); Neutrophils # (auto) 2.9 uL; Neutrophils % (auto) 49.5 % (37.0-80.0); Nucleated Red Blood Cells % 0.1 %; Platelet Count (auto) 232 10^3/uL (140-450); Red Blood Cells 3.86 10^6/uL (4.0-5.20); Red Cell Distribution Width 16.3 % (11.8-14.3); White Blood Cell 5.8 10^3/uL (4.4-10.8)
[2019-08-21] MEDS: ACETAMINOPHEN 325 MG TAB PO PRN (06:28)
[2019-08-21 06:29] LABS: INR 0.99 (0.9-1.15); Partial Thromboplastin Time 31.3 sec (23.64-32.05)
[2019-08-21] MEDS: SUCRALFATE 1 GM/10 ML ORAL SUSP PO SCH ×4 (06:30→22:27)
[2019-08-21 06:37] LABS: Calcium 8.4 mg/dL (8.5-10.1); Potassium 3.4 mmol/L (3.5-5.1)
[2019-08-21 06:39] LABS: BUN/Creatinine Ratio 11.5; Bilirubin, Total 0.2 mg/dL (0.2-1.0); Total Protein 6.7 g/dL (6.4-8.2)
[2019-08-21 09:00] VITALS: BP 139/71
[2019-08-21] MEDS: GABAPENTIN 300 MG CAP PO SCH ×2 (09:00→22:27)
[2019-08-21] MEDS: SPIRONOLACTONE 25 MG TAB PO SCH (09:01)
[2019-08-21] MEDS: PANTOPRAZOLE 40 MG TAB PO SCH ×2 (09:01→22:27)
[2019-08-21] MEDS: VERAPAMIL HCL 120 mg ER tab PO SCH (09:01)
[2019-08-21] MEDS: ENOXAPARIN SOD 100 MG/1 ML SYRINGE SC SCH (09:07)
[2019-08-21] MEDS: cefTRIAXone 1GM/50ML D5W 50 ML IV SCH (09:08)
[2019-08-21] MEDS ORDERED: POTASSIUM CHL 20 Meq TABLET PO ONE (12:30)
[2019-08-21 13:00] VITALS: BP 145/72
--- NOTE | 2019-08-21 14:05 | NUR ---
SPOKE WITH DR HUA, UROLOGIST OVER THE PHONE. PER DR HUA, HE WILL NOT DO PROCEDURE DUE TO PATIENT TAKING COUMADIN YESTERDAY. PT HAS TO BE OFF COUMADIN FOR AT LEAST FIVE DAYS. PATIENT WILL NEED TO BE SCHEDULE FOR OUTPATIENT. DR PADILLA PAGED FOR UPDATE.
--- NOTE | 2019-08-21 14:22 | NUR ---
DR PADILLA CALLED, UPDATED ON WHAT DR HUA SAID. PER DR PADILLA, GIVE ALEX MASON
--- NOTE | 2019-08-21 15:02 | NUR ---
Nutrition Assessment Notes Please see attached link for complete assessment Est. Needs ABW [id number] kcal (17-20 kcal/kgBW), 60-75 gms pro (0.8-1.0 gms/kgBW r/t prerna guerrero). Will continue to monitor pertinent labs and reassess nutrient need prn Addendum: 08/21/19 at [address] Amended: Links added.
[2019-08-21 17:00] VITALS: BP 123/67
[2019-08-21 21:00] VITALS: BP 145/70
--- NOTE | 2019-08-21 21:30 | NUR ---
Respiratory note: PT ASSESSED FOR PRN MED NEB TX. HR 75, RR 18, SPO2 98% ON R/A. NO SIGNS OF ANY RESPIRATORY DISTRESS NOTED. ADVISED PT TO CALL IF TX IS NEEDED. RT NAME AND PAGER NUMBER WRITTEN ON PT'S BOARD.
[2019-08-21] MEDS: APIXABAN 5 MG TAB PO SCH (22:27)
[2019-08-22 04:30] VITALS: BP 144/67
[2019-08-22] MEDS: SUCRALFATE 1 GM/10 ML ORAL SUSP PO SCH ×2 (06:51→11:30)
[2019-08-22] MEDS: ONDANSETRON HCL 4 MG/2 ML VIAL IV PRN (07:04)
[2019-08-22] MEDS: MORPHINE SULFATE 4 MG/ML SYR/VIAL IV PRN (07:04)
[2019-08-22] MEDS: GABAPENTIN 300 MG CAP PO SCH (08:24)
[2019-08-22] MEDS: PANTOPRAZOLE 40 MG TAB PO SCH (08:24)
[2019-08-22] MEDS: SPIRONOLACTONE 25 MG TAB PO SCH (08:25)
[2019-08-22] MEDS: VERAPAMIL HCL 120 mg ER tab PO SCH (08:38)
[2019-08-22] MEDS: APIXABAN 5 MG TAB PO SCH (08:39)
[2019-08-22 09:22] VITALS: BP 152/66
--- NOTE | 2019-08-22 10:50 | NUR ---
Respiratory note: PT ASSESSED FOR PRN MED NEB TX. POX 98% ON RA, HR 78, RR 16. B/S ARE CLEAR THROUGHOUT. PT IS AWARE TO PRESS THE CALL LIGHT IF SHE FEEL SOB TO RECEIVE A MED NEB TX.
[2019-08-22 12:21] VITALS: BP 152/66
[2019-08-22 13:00] VITALS: BP 140/71
[2019-08-28] MEDS ORDERED: APIXABAN 5 MG TAB PO SCH (22:00)
== END 2019-08-22 13:50 | disposition home or self-care (01) | DRG 384 ==
LOC: ER 16:44 → CENTRAL 16:45
PROVIDERS: ADMIT Nurse Practitioner; ATTEND Internal Medicine
PROC: 0DB78ZX Excision of Stomach, Pylorus, Via Natural or Artificial Opening Endoscopic, Diagnostic (ICD-10-PCS; principal; 2019-08-19 09:04)
DX: K25.9 Gastric ulcer, unspecified as acute or chronic, without hemorrhage or perforation (principal); I82.411 Acute embolism and thrombosis of right femoral vein; N20.0 Calculus of kidney; I12.9 Hypertensive chronic kidney disease with stage 1 through stage 4 chronic kidney disease, or unspecified chronic kidney disease; K44.9 Diaphragmatic hernia without obstruction or gangrene; J45.909 Unspecified asthma, uncomplicated; E66.01 Morbid (severe) obesity due to excess calories; N18.2 Chronic kidney disease, stage 2 (mild); Z86.73 Personal history of transient ischemic attack (TIA), and cerebral infarction without residual deficits; Z87.442 Personal history of urinary calculi; Z90.710 Acquired absence of both cervix and uterus; Z88.8 Allergy status to other drugs, medicaments and biological substances; Z88.6 Allergy status to analgesic agent; Z90.49 Acquired absence of other specified parts of digestive tract; Z68.39 Body mass index [BMI] 39.0-39.9, adult; Z79.899 Other long term (current) drug therapy
CPT/HCPCS: 36415; 43239; 71045; 74176; 76775; 80048; 80053; 81001; 83690; 83735; 84443; 85025; 85610; 85730; 87081; 87086; 93970; G0378; J0696; J1885; J2250; J2405

== ENCOUNTER → 2019-09-18 | Outpatient (CLI) | payer OTHER ==
[2019-09-18 11:31] LABS: Basophils # (auto) 0 uL; Basophils % (auto) 0.8 % (0.0-2.0); Eosinophils # (auto) 0.1 uL; Eosinophils % (auto) 1.1 % (0.0-7.0); Hematocrit 31.8 % (36.0-46.0); Hemoglobin 10.1 g/dL (12.2-16.2); Lymphocytes # (auto) 2.1 uL; Lymphocytes % (auto) 36.7 % (10.0-50.0); Mean Corpuscular Hemoglobin 27.1 pg (28.0-32.0); Mean Corpuscular Hgb Conc. 31.9 g/dL (32.0-36.0); Mean Corpuscular Volume 84.9 fL (80.0-100.0); Monocytes # (auto) 0.4 uL; Monocytes % (auto) 7.2 % (0.0-12.0); Neutrophils % (auto) 54.2 % (37.0-80.0); Platelet Count (auto) 329 10^3/uL (140-450); Red Blood Cells 3.74 10^6/uL (4.0-5.20); Red Cell Distribution Width 15.1 % (11.8-14.3); White Blood Cell 5.6 10^3/uL (4.4-10.8)
[2019-09-18 12:46] LABS: Albumin 3.8 g/dL (3.4-5.0); Bilirubin, Total 0.4 mg/dL (0.2-1.0); Calcium 9.3 mg/dL (8.5-10.1); Potassium 3.5 mmol/L (3.5-5.1); Total Protein 7.9 g/dL (6.4-8.2)
== END | disposition home or self-care (01) ==
LOC: LAB 10:32
PROVIDERS: ATTEND Internal Medicine
DX: R11.0 Nausea (principal)
CPT/HCPCS: 36415; 80053; 82150; 83690; 85025

== ENCOUNTER 2019-09-26 17:50 | Inpatient (IN) | payer OTHER ==
[~2019-09-26] VITALS: Ht 154.9 cm; Wt 86.3 kg
[2019-09-26 19:01] LABS: Basophils # (auto) 0.1 uL; Basophils % (auto) 0.9 % (0.0-2.0); Eosinophils # (auto) 0 uL; Eosinophils % (auto) 0.2 % (0.0-7.0); Hematocrit 27.1 % (36.0-46.0); Hemoglobin 8.4 g/dL (12.2-16.2); Lymphocytes # (auto) 1.9 uL; Lymphocytes % (auto) 22.4 % (10.0-50.0); Mean Corpuscular Hemoglobin 26.2 pg (28.0-32.0); Mean Corpuscular Volume 84.4 fL (80.0-100.0); Monocytes # (auto) 0.3 uL; Neutrophils # (auto) 6.3 uL; Neutrophils % (auto) 72.5 % (37.0-80.0); Nucleated Red Blood Cells % 0.1 %; Platelet Count (auto) 328 10^3/uL (140-450); Red Blood Cells 3.21 10^6/uL (4.0-5.20); Red Cell Distribution Width 15.3 % (11.8-14.3); White Blood Cell 8.7 10^3/uL (4.4-10.8)
[2019-09-26 19:24] LABS: Albumin 3.3 g/dL (3.4-5.0); Calcium 8.7 mg/dL (8.5-10.1); Potassium 3.2 mmol/L (3.5-5.1)
[2019-09-26 19:27] LABS: Bilirubin, Total 0.3 mg/dL (0.2-1.0); Total Protein 7.5 g/dL (6.4-8.2)
[2019-09-26] MEDS ORDERED: SODIUM CHLORIDE 0.9% 500 ML IVB ONE (20:19)
[2019-09-26] MEDS ORDERED: MORPHINE SULF INJ 2 MG/ML SYRINGE 1ML IV ONE (20:30)
[2019-09-26] MEDS ORDERED: ONDANSETRON HCL 4 MG/2 ML VIAL IV ONE (20:30)
[2019-09-26] MEDS ORDERED: cloNIDine HCL 0.1 MG TAB PO PRN (22:15)
[2019-09-26] MEDS ORDERED: ONDANSETRON HCL 4 MG/2 ML VIAL IV PRN (22:15)
[2019-09-26] MEDS ORDERED: DOCUSATE SOD 100 MG CAP PO PRN (22:15)
[2019-09-26] MEDS ORDERED: ALBUTEROL SULF 2.5 MG/0.5ML(0.5%) NEB SOLN NEB PRN (22:15)
[2019-09-26] MEDS ORDERED: TEMAZEPAM 15 MG CAP PO PRN (22:15)
[2019-09-26 23:01] LABS: Hematocrit 25.2 % (36.0-46.0)
[2019-09-26 23:10] VITALS: BP 186/80
--- NOTE | 2019-09-26 23:15 | NUR ---
MS admit from ER YAS JORGENSEN admitted to tele/MS after SBAR received. Patient oriented to ASHU KUMAR RN primary RN, unit, room, bed, and unit policies regarding patient care and visiting hours. Patient weighed by bedscale and encouraged to call if they need something. All questions and concerns addressed, patient verbalized understanding. Note:
[2019-09-26] MEDS ORDERED: APIX5TAB PO (23:26)
[2019-09-26] MEDS ORDERED: PANT40TA2 PO (23:26)
--- NOTE | 2019-09-26 23:32 | NUR ---
UPDATED HOME MEDICATION LIST PATIENT TAKE VERAPAMIL 240MG PO BID AND ELIQUIS 5MG PO BID UPDATED LIST. PATIENT CURRENT BP 186/80 HR 102. PAGED HOSPITALIST TO SEE ABOUT CONTINUING HOME MEDICATIONS. AWAITING CALL BACK. Addendum: 09/26/19 at 2356 by ASHU KUMAR RN RN PATIENT CURRENT H/H 07/23.2. PAGED HOSPITALIST AWAITING CALL BACK FOR ORDERS
[2019-09-27] VITALS (7 sets, daily range): BP systolic 124–167; BP diastolic 43–78
[2019-09-27] MEDS ORDERED: cloNIDine HCL 0.1 MG TAB PO PRN (00:45)
--- NOTE | 2019-09-27 01:55 | NUR ---
PAGED HOSPITALIST REGARDING ORDER FOR CLONIDICE. PATIENT IS ALL AXOX4 P[facility] HOSPTITALIZED THAT SLEEP
[2019-09-27] MEDS ORDERED: LABETALOL HCL 5 MG/ML ML 20ML VIAL IV ONE (02:45)
[2019-09-27] MEDS ORDERED: POTASSIUM CHL 20 Meq TABLET PO ONE ×2 (02:45→13:00)
[2019-09-27] MEDS: HYDROcodone-ACET 5/325MG TAB PO PRN (05:10)
[2019-09-27] MEDS: GABAPENTIN 300 MG CAP PO SCH ×3 (05:10→21:20)
[2019-09-27 06:00] LABS: Basophils # (auto) 0 uL; Basophils % (auto) 0.6 % (0.0-2.0); Eosinophils # (auto) 0 uL; Neutrophils # (auto) 3.5 uL; Nucleated Red Blood Cells % 0.1 %; White Blood Cell 6.3 10^3/uL (4.4-10.8)
[2019-09-27 06:04] LABS: Eosinophils % (auto) 0.7 % (0.0-7.0); Hematocrit 21.7 % (36.0-46.0); Lymphocytes % (auto) 31.2 % (10.0-50.0); Mean Corpuscular Hgb Conc. 32.2 g/dL (32.0-36.0); Mean Corpuscular Volume 83.7 fL (80.0-100.0); Monocytes # (auto) 0.7 uL; Monocytes % (auto) 11.5 % (0.0-12.0); Platelet Count (auto) 276 10^3/uL (140-450); Red Cell Distribution Width 15.3 % (11.8-14.3)
[2019-09-27 06:26] LABS: Albumin 2.9 g/dL (3.4-5.0); BUN/Creatinine Ratio 15.4; Potassium 3.2 mmol/L (3.5-5.1)
[2019-09-27 06:29] LABS: Bilirubin, Total 0.3 mg/dL (0.2-1.0); Total Protein 6.2 g/dL (6.4-8.2)
[2019-09-27] MEDS: D5W/SOD CHLO 0.9% 1,000 ML IV SCH (06:38)
--- NOTE | 2019-09-27 06:47 | NUR ---
CRITICAL LAB VALUE PT H/H 06/18.6. RECEIVED ORDER TO T&S 1 UNIT PRBC, OBTAIN PT/PTT START PATIENT ON IVF AND SANDOSTATIN 10ML/HR IV. OBTAIN STOOL SPECIMEN. INFORMED PATIENT TO COLLECT NEXT STOOL Addendum: 09/27/19 at 0657 by ASHU KUMAR RN RN CALLED PHARMACY REGARDING NEW ORDER OF SANDOSTATIN WILL SEND UP MEDICATION WHEN READY. PT SIGNED CONSENT FOR BLOOD TRANSFUSION.
[2019-09-27] MEDS ORDERED: OCTREOTIDE ACETATE 500 MCG in SODIUM CHL 0.9% 99 ML IV SCH (07:00)
--- NOTE | 2019-09-27 07:23 | NUR ---
IVF D5NS@75 STARTED AND SANDOSTATIN GTT 10ML/HR INITIATED. PATIENT EDUCATION GIVEN TO PT AND UPDATED ON PLAN OF CARE
[2019-09-27 07:28] LABS: INR 1.04 (0.9-1.15); Partial Thromboplastin Time 25.4 sec (23.64-32.05)
--- NOTE | 2019-09-27 07:30 | NUR ---
Opening Shift Note Assumed care of patient, awake, alert, and oriented x4. No S/S of distress/SOB, but patient reports generalized body pain of 9/10. IV is in left wrist 22 gauge and is asymptomatic, intact, patent, and is infusing D5 NS @75 mL/hour, and Sandostatin @10 mL/hour. Bed is locked and in lowest position and call light is within reach. Instructed on POC and to call for assist PRN, and patient verbalized understanding. Will continue to monitor for changes Q1hr and PRN.
[2019-09-27] MEDS: VERAPAMIL HCL 120 mg ER tab PO SCH (09:15)
--- NOTE | 2019-09-27 09:45 | NUR ---
Respiratory note: PT ASSESSED FOR PRN MED NEB TX, NO TX DESIRED NOR INDICATED AT THIS TIME. NO C/O SOB OR DIFF BREATHING. NO SIGNS OF DISTRESS NOTED. HR 75 RR 16 SPO2 100% ON 2L N/C TITRATED DOWN TO 2L N/C SPO2 REMAINED 99% BREATH SOUNDS ARE CLEAR/DIMINISHED T/O. PT AWAKE/ALERT SITTING IN BED. PT AND RN AWARE TO HAVE RT PAGE DIF NEEDED.
[2019-09-27] MEDS ORDERED: FAMOTIDINE 20 MG TAB PO SCH (10:00)
[2019-09-27] MEDS ORDERED: SPIRONOLACTONE 25 MG TAB PO SCH (10:00)
--- NOTE | 2019-09-27 10:00 | NUR ---
Dr. Adamson, Oncologist, at bedside; new orders received.
[2019-09-27] MEDS ORDERED: ENOXAPARIN SOD 100 MG/1 ML SYRINGE SC ONE (10:15)
--- NOTE | 2019-09-27 12:00 | NUR ---
Dr. Brink, Hospitalist, at bedside; new orders received.
--- NOTE | 2019-09-27 12:05 | NUR ---
Dr. Brink, Hospitalist, said hold blood transfusion.
[2019-09-27] MEDS ORDERED: IOHEXOL 300 MG/ML 100ML BOTTLE IJ ONE (14:09)
[2019-09-27] MEDS: PANTOPRAZOLE 40 MG TAB PO SCH ×2 (16:05→21:20)
--- NOTE | 2019-09-27 19:30 | NUR ---
Respiratory note: PT ASSESSED FOR PRN MED NEB TX. HR 77, RR 16, SPO2 99% ON R/A. NO SIGNS OF ANY RESPIRATORY DISTRESS NOTED. ADVISED PT TO CALL IF TX IS NEEDED. RT NAME AND PAGER NUMBER WRITTEN ON PT'S BOARD.
--- NOTE | 2019-09-27 19:45 | NUR ---
Opening Shift Note Assumed care of patient, awake and alert, oriented x 4. On room air with even and unlabored respirations, no S/S of distress or SOB. Patient reports LBM 09/26 hard black stool after taking an enema at home. IV to left wrist intact and patent infusing d5w/ns0.9% at 75ml/hr. Midline to right upper arm intact and patent. Hypoactive bowel sounds, abd tender upon palpation. Patient ambulates and turns in bed independently. Bed low locked position with side rails up x 2 and call light within reach. Instructed on POC and to call for assist PRN, will continue to monitor for changes Q1hr and PRN.
[2019-09-28] VITALS (7 sets, daily range): BP systolic 126–197; BP diastolic 56–95
[2019-09-28] MEDS: D5W/SOD CHLO 0.9% 1,000 ML IV SCH ×3 (00:51→18:50)
[2019-09-28 05:43] LABS: Basophils # (auto) 0 uL; Basophils % (auto) 0.8 % (0.0-2.0); Eosinophils # (auto) 0.1 uL; Eosinophils % (auto) 1.8 % (0.0-7.0); Lymphocytes # (auto) 1.2 uL; Lymphocytes % (auto) 26.3 % (10.0-50.0); Mean Corpuscular Hemoglobin 26.9 pg (28.0-32.0); Mean Corpuscular Hgb Conc. 31.7 g/dL (32.0-36.0); Mean Corpuscular Volume 84.8 fL (80.0-100.0); Monocytes # (auto) 0.6 uL; Monocytes % (auto) 13.2 % (0.0-12.0); Neutrophils # (auto) 2.6 uL; Neutrophils % (auto) 57.9 % (37.0-80.0); Nucleated Red Blood Cells % 0.3 %; Platelet Count (auto) 262 10^3/uL (140-450); Red Blood Cells 2.59 10^6/uL (4.0-5.20); Red Cell Distribution Width 15.8 % (11.8-14.3); White Blood Cell 4.5 10^3/uL (4.4-10.8)
[2019-09-28 05:49] LABS: BUN/Creatinine Ratio 9.2; Calcium 7.5 mg/dL (8.5-10.1); Potassium 3.8 mmol/L (3.5-5.1)
[2019-09-28] MEDS: GABAPENTIN 300 MG CAP PO SCH ×3 (06:00→22:00)
--- NOTE | 2019-09-28 06:57 | NUR ---
Closing note patient resting in bed with even and unlabored respirations, no s/s of distress. Endorsed care to day shift RN.
--- NOTE | 2019-09-28 09:50 | NUR ---
Respiratory note: Assessed pt for prn medneb tx. HR 83, RR 16, POX 100% on room air. Breath sounds clear/diminished. No s/s of respiratory distress noted. Pt denies any SOB at this time. Medneb tx not indicated. Advised pt to call for RT if needed. RN at bedside and aware as well.
[2019-09-28] MEDS: VERAPAMIL HCL 120 mg ER tab PO SCH (09:51)
[2019-09-28] MEDS: PANTOPRAZOLE 40 MG TAB PO SCH ×2 (09:51→22:01)
[2019-09-28] MEDS ORDERED: MORPHINE SULF 15mg ER tab PO ONE (12:15)
[2019-09-28] MEDS ORDERED: MORPHINE SULF INJ 2 MG/ML SYRINGE 1ML IV PRN (12:15)
[2019-09-28] MEDS: cloNIDine HCL 0.1 MG TAB PO PRN (12:22)
[2019-09-28] MEDS: PROMETHAZINE HCL 25 MG/ML 1ML IV PRN ×2 (12:31→22:01)
[2019-09-28] MEDS ORDERED: MIDAZOLAM HCL 1MG/1ML-2 ML VIAL IV ONE (14:00)
[2019-09-28] MEDS ORDERED: fentaNYL CITRATE 100 MCG/2 ML VL IV ONE (14:00)
--- NOTE | 2019-09-28 14:00 | NUR ---
Urine Sent Urine sent to lab.
[2019-09-28 14:04] LABS: Urine Bacteria FEW /hpf (None Seen); Urine Blood Negative /uL (Negative); Urine Mucus FEW (None Seen); Urine Specific Gravity 1.013 (1.001-1.035); Urine WBC 4 /hpf (0 - 5)
[2019-09-28] MEDS ORDERED: LIDOCAINE 2%HCL (LOCAL ANESTH.) INJ 20ML MDV ONE (14:04)
[2019-09-28] MEDS ORDERED: GELATIN 1 SPONGE SIZE 100 TOP ONE (14:04)
--- NOTE | 2019-09-28 14:21 | NUR ---
Off Unit Patient off unit via bed to radiology. Blood transfusion started at 1419. RN Malaika is aware. No signs of distress or shortness of breath noted.
--- NOTE | 2019-09-28 14:24 | NUR ---
Blood Transfusion Blood transfusion started at 1419.
--- NOTE | 2019-09-28 16:25 | NUR ---
BACK ON UNIT PATIENT BACK ON UNIT VIA BED FROM RADIOLOGY. NO S/S OF SOB/DISTRESS NOTED. DRESSING C/D/I. PRBC STILL TRANSFUSING. WILL CONTINUE TO MONITOR FOR CHANGES.
--- NOTE | 2019-09-28 18:13 | NUR ---
Respiratory note: ASSESSMENT FOR PRN MED NEB TX. HR 93, SPO2 97% ON 2L NC, RR 19, BS DIMINISHED. PT PRESENTING NO RESPIRATORY DISTRESS AT THIS TIME. MED NEB TX NOT INDICATED, PT AWARE TO HAVE RT PAGED IF TREATMENT IS NEEDED, WILL CONTINUE TO MONITOR.
[2019-09-28] MEDS: MORPHINE SULF 15mg ER tab PO SCH (22:01)
[2019-09-29] VITALS (7 sets, daily range): BP systolic 90–141; BP diastolic 53–76
--- NOTE | 2019-09-29 03:30 | NUR ---
PT CARE RESUMED REPORT RECEIVED FROM MARY ALICE RN, PATIENT CURRENTLY SLEEPING, EASILY AWAKENED VIA VERBAL STIMULI, AXOX4, NOT CURRENTLY C/O ABD PAIN, DRESSING TO MID UPPER ABD FROM CT GUIDED BX NOTED, CDI, RIGHT UPPER ARM ML IV NOTED, ECCHYMOSIS NOTED, SITE TENDER TO TOUCH, LEFT WRIST IV 22G, EDEMA NOTED AND IV WAS DISCONTINUED, CALL LIGHT WITHIN REACH, INSTRUCTED TO CALL FOR HELP, PT ABLE TO DEMONSTRATE HOW TO CALL FOR ASSIST, BED ALARM ACTIVATED
[2019-09-29 05:54] LABS: Basophils # (auto) 0 uL; Basophils % (auto) 0.3 % (0.0-2.0); Eosinophils # (auto) 0 uL; Eosinophils % (auto) 0.1 % (0.0-7.0); Hematocrit 24.8 % (36.0-46.0); Hemoglobin 7.9 g/dL (12.2-16.2); Lymphocytes # (auto) 1.6 uL; Lymphocytes % (auto) 16.3 % (10.0-50.0); Mean Corpuscular Hemoglobin 27.1 pg (28.0-32.0); Mean Corpuscular Hgb Conc. 31.8 g/dL (32.0-36.0); Mean Corpuscular Volume 85.5 fL (80.0-100.0); Monocytes # (auto) 0.8 uL; Monocytes % (auto) 8.4 % (0.0-12.0); Neutrophils # (auto) 7.4 uL; Neutrophils % (auto) 74.9 % (37.0-80.0); Nucleated Red Blood Cells % 0.2 %; Platelet Count (auto) 280 10^3/uL (140-450); White Blood Cell 9.9 10^3/uL (4.4-10.8)
--- NOTE | 2019-09-29 06:00 | NUR ---
ELEVATED TEMP 101.9 COOLING MEASURES IMPLEMENTED, MEDICATED WITH TYLENOL ORDERED, NO C/O CHILLS OR FEELING COLD, WILL CLOSELY MONITOR, WILL RE-ASSES TEMP
[2019-09-29] MEDS: GABAPENTIN 300 MG CAP PO SCH (06:09)
[2019-09-29] MEDS: ACETAMINOPHEN 325 MG TAB PO PRN ×2 (06:10→12:11)
--- NOTE | 2019-09-29 07:39 | NUR ---
PT. ASSESSED FOR PRN. MN. TX., PT. STATES HER BREATHING IS FINE. NO RESP. DISTRESS OR SOB NOTED. EX=598,RR=20, SP02=92% ON RA. PT. IS AWARE SHE MAY CALL IF NEEDED, TX. NOT INDICATED AT THIS TIME.
--- NOTE | 2019-09-29 09:35 | NUR ---
INFORMED OF ELEVATED TEMP CURRENT TEMP 101.4 ORALLY, TYLENOL NOT DUE, COOLING MEASURES IMPLEMENTED, DR GUILLAUME NOTIFIED, NEW ORDERS RECEIVED FOR STAT BLOOD CULTURES, PRIOR TO STARTING PT ON ANTIBIOTICS, CONT TO CLOSELY MONITOR
[2019-09-29] MEDS: PANTOPRAZOLE 40 MG TAB PO SCH ×2 (11:42→21:23)
[2019-09-29] MEDS: VERAPAMIL HCL 120 mg ER tab PO SCH (11:42)
[2019-09-29] MEDS: MORPHINE SULF 15mg ER tab PO SCH (11:42)
[2019-09-29] MEDS: D5W/SOD CHLO 0.9% 1,000 ML IV SCH (11:43)
--- NOTE | 2019-09-29 11:43 | NUR ---
BLOOD SUGAR 119
--- NOTE | 2019-09-29 12:05 | NUR ---
TEMP 101.4 CONT WITH COOLING MEASURES, ADMINISTERED TYLENOL ORDERED, NO C/O CHILLS OR ANY OTHER DISCOMFORT, CALL LIGHT WITHIN REACH, INSTRUCTED PT TO CALL FOR ASSIST, CALL LIGHT WITHIN REACH, PT ABLE TO DEMONSTRATE HOW TO CALL FOR HELP, DR PADILLA WAS INFORMED OF ELEVATION IN TEMPERATURE, STATES HE WILL SEE PT NEXT, CONT TO CLOSELY MONITOR
[2019-09-29] MEDS ORDERED: LEVOFLOXACIN 500MG 100 ML IV ONE (12:30)
[2019-09-29] MEDS ORDERED: MORPHINE SULF INJ 2 MG/ML SYRINGE 1ML IV PRN (12:30)
--- NOTE | 2019-09-29 12:43 | NUR ---
NUTRITION ASSESSMENT NOTES Please refer to link notes of nutrition screen form filed under the intervention section of the plan of care for further details. Est. Needs: 1300 kcal to 1750 kcal (15-20 kcal/kgBW), 86 gms to 103 gms pro (1.0-1.2 gms/kgBW). Will continue to monitor pertinent labs and reassess nutrient need prn Thank you. Addendum: 09/29/19 at [address] Amended: Links added.
[2019-09-29] MEDS ORDERED: IOHEXOL 350 MG/ML 100ML IJ ONE (14:11)
--- NOTE | 2019-09-29 15:15 | NUR ---
PT OFF UNIT TAKEN TO RADIOLOGY, NEW IV 2OG INSERTED TO LEFT FA AFTER 2 ATTEMPTS, SITE PATENT AND BENIGN, NO C/O PAIN AT SITE, CONT CARE
--- NOTE | 2019-09-29 15:20 | NUR ---
Assessment Pt is a 64 yr old alert but extremely tired female. Prior to admit, pt lived with Brandon, who is her emergency contact at [phone]. Prior to admit, pt ambulates with the assistance of a walker or w/c. Pt is independent with ADL's. Pt has a son and daughter in law in the home who helps to cook and clean sometimes. Pt stated that she needs a smaller shower chair in the home to complete showering along with a power chair, SW notified nurse to put in the order for it. Prior to admit, pt was in lots of pain in abdomen and back and extreme constipation. Pt stated that she just found out that she has cancerous masses in her liver, pancreas and colon and has 3-6 months left to live. Pt stated that she doesn't want tx for it, including chemo because her mom went through chemo for the same thing and it was a terrible situation. Pt stated that she is accepting of her diagnosis, she has made peace with it, and has strong july that "God's will be done." Pt stated that she is interested in Hospice and is going to consider that option. Pt stated that she has a very supportive family and has made peace with the idea of dying. Pt receives income and is interested in signing a DNR form. Pt can transport home. Further needs will be assessed closer to d/c. Addendum: 09/29/19 at 1533 by ELSIE HARGROVE Amended: Links added.
[2019-09-29] MEDS: metroNIDAZOLE 500MG/100ML 100 ML IV SCH ×2 (15:43→21:23)
[2019-09-29] MEDS: PROMETHAZINE HCL 25 MG/ML 1ML IV PRN (15:44)
[2019-09-29 15:57] LABS: Basophils # (auto) 0 uL; Basophils % (auto) 0.1 % (0.0-2.0); Eosinophils # (auto) 0 uL; Lymphocytes # (auto) 1.3 uL; Mean Corpuscular Hemoglobin 26.4 pg (28.0-32.0); Mean Corpuscular Hgb Conc. 30.7 g/dL (32.0-36.0); Monocytes # (auto) 1.2 uL; Monocytes % (auto) 8.5 % (0.0-12.0)
[2019-09-29 15:58] LABS: Hemoglobin 7.1 g/dL (12.2-16.2); Lymphocytes % (auto) 8.9 % (10.0-50.0); Mean Corpuscular Volume 86.1 fL (80.0-100.0); Neutrophils # (auto) 11.8 uL; Neutrophils % (auto) 82.5 % (37.0-80.0); Nucleated Red Blood Cells % 0.2 %; Platelet Count (auto) 283 10^3/uL (140-450); Red Blood Cells 2.67 10^6/uL (4.0-5.20); Red Cell Distribution Width 15.9 % (11.8-14.3); White Blood Cell 14.4 10^3/uL (4.4-10.8)
--- NOTE | 2019-09-29 16:20 | NUR ---
UPDATED CHANGE IN CONDITION DR VALERIE CORRALES MD RETURNED CALL, INFORMED PT BEHAVIOR CHANGE AFTER PHENERGAN WAS ADMINISTERED, PATIENT HAVING PERIODS OF ODD BREATHING PATTERNS AND DROWSINESS , O2 WAS APPLIED @ 2L VIA NC, HOB >30, NEW ORDERS RECEIVED RBO, ALSO ORDERED UPGRADE TO TELE, CHARGE NURSE UPDATED, CONT CARE
--- NOTE | 2019-09-29 16:43 | NUR ---
STATUS CHANGED TO TELE TELE #49 ST 120, NO CURRENT DISTRESS NOTED, CURRENTLY ON 2L VIA NC, FAMILY AT BEDSIDE, UPDATED ON POC, CONT CARE
[2019-09-29] MEDS: Ensure Enlive Strawberry 8oz Bottle PO SCH (18:19)
--- NOTE | 2019-09-29 18:55 | NUR ---
PT SEEN SLEEPING IN BED WITH FAMILY AT BEDSIDE. NO RESPIRATORY DISTRESS NOTED. BS CLEAR AND DIMINISHED. SPO2 100% ON 2L NC. PRN NEB TX NOT INDICATED AT THIS TIME.
--- NOTE | 2019-09-29 19:31 | NUR ---
Patient received in bed sleeping, arousable to name, no distress noted. abdominal dressing clean and dry, abdomen rounded, slightly tender, soft with palpation, still has some nausea, spouse at bedside. Call martin with in reach. Bed in low position.
[2019-09-30] VITALS (9 sets, daily range): BP systolic 114–134; BP diastolic 53–92
--- NOTE | 2019-09-30 05:22 | NUR ---
Patient assisted to bedside commode, voided 100ml yellow urine, bladder scan done >596ml. Paged hospitalist.
--- NOTE | 2019-09-30 05:23 | NUR ---
Patient ambulated with walker in hallway, heart rate up to 130's, assisted back to bed, heart rate down to 100's.
[2019-09-30] MEDS: metroNIDAZOLE 500MG/100ML 100 ML IV SCH ×3 (05:41→20:48)
[2019-09-30 06:14] LABS: Albumin 2.4 g/dL (3.4-5.0); BUN/Creatinine Ratio 11.4; Calcium 7.5 mg/dL (8.5-10.1); Potassium 4.1 mmol/L (3.5-5.1)
[2019-09-30 06:17] LABS: Bilirubin, Total 0.5 mg/dL (0.2-1.0); Total Protein 6.2 g/dL (6.4-8.2)
[2019-09-30 06:18] LABS: % Iron Saturation 2.6 % (15-50)
[2019-09-30 06:44] LABS: Basophils # (auto) 0 uL; Basophils % (auto) 0.1 % (0.0-2.0); Eosinophils # (auto) 0 uL; Eosinophils % (auto) 0.1 % (0.0-7.0); Hematocrit 22.1 % (36.0-46.0); Lymphocytes # (auto) 1.2 uL; Mean Corpuscular Hemoglobin 25.9 pg (28.0-32.0); Mean Corpuscular Hgb Conc. 28.4 g/dL (32.0-36.0); Mean Corpuscular Volume 91.2 fL (80.0-100.0); Monocytes # (auto) 0.9 uL; Monocytes % (auto) 8.3 % (0.0-12.0); Neutrophils # (auto) 9.1 uL; Neutrophils % (auto) 80.5 % (37.0-80.0); Nucleated Red Blood Cells % 0.1 %; Platelet Count (auto) 232 10^3/uL (140-450); Red Blood Cells 2.42 10^6/uL (4.0-5.20); Red Cell Distribution Width 16.5 % (11.8-14.3); White Blood Cell 11.3 10^3/uL (4.4-10.8)
[2019-09-30 06:53] LABS: Hemoglobin 6.3 g/dL (12.2-16.2)
--- NOTE | 2019-09-30 06:58 | NUR ---
Critical H&H received from Lab Hgb 6.3, Hct 22.1, paged Hospitalist.
--- NOTE | 2019-09-30 07:07 | NUR ---
Straight cath done obtained 500ml shyla colored urine, patient tolerated procedure well.
--- NOTE | 2019-09-30 07:08 | NUR ---
Hospitalist called back, received order to give 1 unit PRBC.
--- NOTE | 2019-09-30 08:00 | NUR ---
OPENING SHIFT NOTE ASSUMED CARE OF PATIENT. PATIENT IS AWAKE AND ALERT. NO SOB OR SIGNS OF DISTRESS NOTED. INSTRUCTED ON POC AND TO CALL FOR HELP PRN. BED IN LOWEST POSITION WITH SIDE RAILS UP X2. WILL CONTINUE TO MONITOR.
--- NOTE | 2019-09-30 08:44 | NUR ---
Respiratory note: ASSESSED PT FOR PRN TX PT WAS AWAKE AND ALERT NO RESP DISTRESS NOTED. HR 95, RR 16, SPO2 100% ON 2L NC. BS ARE CLEAR AND DIMINISHED, NO INDICATION FOR TX AT THIS TIME. PT KNOWS TO HAVE RT PAGED IF TX IS NEEDED.
[2019-09-30] MEDS: PANTOPRAZOLE 40 MG TAB PO SCH ×2 (10:46→20:48)
[2019-09-30] MEDS: ACETAMINOPHEN 325 MG TAB PO PRN (10:48)
[2019-09-30 13:27] LABS: Hemoglobin 8.4 g/dL (12.2-16.2)
[2019-09-30 13:29] LABS: Hematocrit 26.8 % (36.0-46.0)
[2019-09-30] MEDS: LEVOFLOXACIN 500MG 100 ML IV SCH (14:36)
--- NOTE | 2019-09-30 16:30 | NUR ---
CALLED SHEET METAL FABRICATOR HOSPITALIST DUE TO PT COMPLAINING OF PELVIC PRESSURE AND NO URINE OUTPUT. HOSPITALIST ISSUED ORDERS FOR ALONSO CATHETER. WILL PLACE AND CARRY OUT.
[2019-09-30] MEDS: POLYETHYLENE GLYCOL 17 GM PWDR PO PRN ×2 (17:04→19:20)
[2019-09-30] MEDS: Ensure Enlive Strawberry 8oz Bottle PO SCH ×2 (17:05→17:06)
--- NOTE | 2019-09-30 17:45 | NUR ---
Walton catheter insertion Patient assessed and determined to be in need of walton catheter. Order obtained from HOSPITALIST. Patient educated on catheter and reason for insertion. All questions answered. Walton catheter guage Micronesian inserted with clean sterile technique. Patient tolerated well.
--- NOTE | 2019-09-30 19:20 | NUR ---
Opening Shift Note Assumed care of patient, awake and alert. No S/S of distress/SOB or pain. Instructed on POC and to call for assist PRN, will continue to monitor for changes Q1hr and PRN. Visitors at bedside.
--- NOTE | 2019-10-01 04:50 | NUR ---
PT SEEN RESTING IN BED WITH NO RESP DISTRESS. SPO2 93% ON RA, BS CLEAR AND DIMINISHED, PRN NEB TX NOT INDICATED AT THIS TIME.
[2019-10-01 05:28] VITALS: BP 159/75
[2019-10-01] MEDS: metroNIDAZOLE 500MG/100ML 100 ML IV SCH ×3 (05:35→21:04)
[2019-10-01 09:29] VITALS: BP 163/88
[2019-10-01] MEDS: HYDROcodone-ACET 5/325MG TAB PO PRN ×2 (09:52→12:30)
[2019-10-01] MEDS: ONDANSETRON HCL 4 MG/2 ML VIAL IV PRN ×2 (09:52→12:30)
[2019-10-01] MEDS: PANTOPRAZOLE 40 MG TAB PO SCH ×2 (09:53→21:04)
[2019-10-01] MEDS: cloNIDine HCL 0.1 MG TAB PO PRN (09:53)
[2019-10-01] MEDS: Ensure Enlive Strawberry 8oz Bottle PO SCH ×3 (09:53→17:01)
[2019-10-01] MEDS: LEVOFLOXACIN 500MG 100 ML IV SCH (09:54)
[2019-10-01 11:05] LABS: Basophils # (auto) 0 uL; Basophils % (auto) 0.3 % (0.0-2.0); Eosinophils % (auto) 0.4 % (0.0-7.0); Hemoglobin 8.4 g/dL (12.2-16.2); Mean Corpuscular Volume 87.5 fL (80.0-100.0); Neutrophils # (auto) 10.3 uL; Nucleated Red Blood Cells % 0.1 %
[2019-10-01 11:09] LABS: Eosinophils # (auto) 0 uL; Lymphocytes % (auto) 8.8 % (10.0-50.0); Mean Corpuscular Hemoglobin 27.1 pg (28.0-32.0); Mean Corpuscular Hgb Conc. 30.9 g/dL (32.0-36.0); Monocytes # (auto) 0.4 uL; Monocytes % (auto) 3.7 % (0.0-12.0); Neutrophils % (auto) 86.8 % (37.0-80.0); Platelet Count (auto) 206 10^3/uL (140-450); Red Blood Cells 3.09 10^6/uL (4.0-5.20); Red Cell Distribution Width 15.8 % (11.8-14.3); White Blood Cell 11.8 10^3/uL (4.4-10.8)
[2019-10-01 11:29] LABS: BUN/Creatinine Ratio 17.7; Calcium 7.9 mg/dL (8.5-10.1); Potassium 3.6 mmol/L (3.5-5.1)
[2019-10-01] MEDS: MORPHINE SULF INJ 2 MG/ML SYRINGE 1ML IV PRN (12:31)
[2019-10-01 13:00] VITALS: BP 154/103
[2019-10-01 17:00] VITALS: BP 137/55
--- NOTE | 2019-10-01 19:25 | NUR ---
RECEIVED PATIENT RESTING IN BED, NO S/SX OF DISTRESS NOTED, DENIES PAIN AT THIS TIME. FAMILY AT BEDSIDE. CALLL CAMACHO WITH IN REACH, BED IN LOW POSITION.
--- NOTE | 2019-10-01 19:28 | NUR ---
Respiratory note: ASSESSED PT FOR PRN MED NEB AT THIS TIME, PT DENIES SOB AT THIS TIME, NO RESP DISTRESS NOTED, NO TX INDICATED, PULSE OX 99% ON 2LNC, HR 71, RR 20, BILATERAL BS CLEAR DECREASED.
[2019-10-01 22:00] VITALS: BP 158/73
[2019-10-02 00:06] VITALS: BP 149/74
[2019-10-02] MEDS: MORPHINE SULF INJ 2 MG/ML SYRINGE 1ML IV PRN ×3 (03:19→11:12)
[2019-10-02] MEDS: ONDANSETRON HCL 4 MG/2 ML VIAL IV PRN ×3 (03:19→11:12)
[2019-10-02 04:57] VITALS: BP 157/82
[2019-10-02] MEDS: metroNIDAZOLE 500MG/100ML 100 ML IV SCH ×2 (05:39→15:00)
--- NOTE | 2019-10-02 06:16 | NUR ---
END OF SHIFT NOTE: PATIENT HAD EPISODE OF NAUSEA AND VOMITING. MEDICATED WITH ZOFRAN ORDERED. PATIENT GETS UP TO BEDSIDE COMMODE, STAND BY ASSIST, GETS EXHAUSTED WITH SLIGHT MOVEMENTS. HOSPICE CONSULT PENDING.
--- NOTE | 2019-10-02 06:28 | NUR ---
PRN MN TX NOT INDICATED AT THIS TIME. PT IS AWAKE, ALERT AND ORIENTED. PT ON RA, 93% O2 SATS, HR 98BPM, RR18 BPM, RESPIRATION IS REGULAR AND NON LABORED. BS ARE DIMINISHED TO AUSCULTATION, SKIN IS WARM TO THE TOUCH. PT DENIES SOB OR ANY OTHER RESPIRATORY DISTRESS. PT INSTRUCTED TO CALL IF MN TX IS INDICATED. PT VERBALIZED UNDERSTANDING. WILL CONTINUE TO MONITOR PT.
[2019-10-02] MEDS ORDERED: diphenhdrAMINE HCL 50 MG/1 ML VL ONE (08:44)
[2019-10-02] MEDS ORDERED: SODIUM CHLORIDE LOCK 0 ML ONE (08:44)
[2019-10-02] MEDS ORDERED: MIDAZOLAM HCL 5 MG/ML-1ML VIAL ONE (08:44)
[2019-10-02] MEDS ORDERED: LIDOCAINE VISCOUS 2% 15ML UD ONE (08:44)
[2019-10-02] MEDS ORDERED: fentaNYL CITRATE 100 MCG/2 ML VL ONE (08:44)
[2019-10-02 09:00] VITALS: BP 150/91
[2019-10-02] MEDS: PANTOPRAZOLE 40 MG TAB PO SCH (09:23)
[2019-10-02] MEDS: LEVOFLOXACIN 500MG 100 ML IV SCH (09:23)
[2019-10-02 09:24] LABS: Folate (Folic Acid) 11.7 ng/mL (5.38-24)
[2019-10-02] MEDS: Ensure Enlive Strawberry 8oz Bottle PO SCH ×2 (09:24→13:07)
[2019-10-02] MEDS ORDERED: IRON SUCROSE COMPLEX 200 MG in SODIUM CHL 0.9% 100 ML IV SCH (12:00)
[2019-10-02] MEDS ORDERED: HYDROmorphone HCL 2 MG/ML VL IV PRN (12:45)
[2019-10-02] MEDS ORDERED: PROMETHAZINE HCL 25 MG/ML 1ML IV PRN (12:45)
[2019-10-02 13:00] VITALS: BP 165/95
--- NOTE | 2019-10-02 13:00 | NUR ---
Walton catheter dc'd Order to discontinue walton catheter. Walton dc'd with clean technique following deflation of balloon. Patient tolerated well with no complaints of pain. Continue care.
[2019-10-02] MEDS: cloNIDine HCL 0.1 MG TAB PO PRN (13:25)
--- NOTE | 2019-10-02 14:42 | NUR ---
Nutrition Follow-up Notes Wt.: 86.3 KG Pt was sleeping with no family by beside. per records pt with cancer and mets and on hospice. pt is currently on full liq diet with ensure Enlive TID with fair PO of avg 60% x 4 per RN doc Est. Needs: 1300 kcal to 1750 kcal (15-20 kcal/kgBW), 86 gms to 103 gms pro (1.0-1.2 gms/kgBW). Will continue to monitor pertinent labs and reassess nutrient need prn Labs: GLU 115 H, ALB 2.4 L, CA 7.9 L. Skin: Kirby scale 19, low risk, skin intact per RN doc GI: Pt had 1 BM today per plant anatomy teacher. PES: increased nutrient needs r/t chronic current medical condition aeb Acute abdominal pain,Pancreatic mass,Metastatic disease,Constipation Altered nutrition related lab values r/t current/chronic medical condition aeb hyperglycemia, hyperchloremia, elev. CA 19-9, 125 antigens, hypocalcemia and mod hypoalbuminemia Obesity r.t food intake more than body requirement aeb 181% IBW, BMI 35.9 kg/m2 and increased body adiposity Will continue to monitor PO intake, skin status, pertinent labs and weight trend. F/u in 3-5 days. Rec.: 1.) 1.) If Albumin continues trending down, consider Prostat 1 pkt BID. 2.) Continue close supervision with meals. 3.) Refer to RD for further nutrition educ. and weight monitoring upon discharge. 4.) Continue current plan of care
--- NOTE | 2019-10-02 16:51 | NUR ---
D/C Planning Per consult for Hospice. Pt Brandon was at bedside when information and choice letter was given to Pt. Pt and requested [facility]. Pt and verbalize understanding d/c plan. Contact [facility] Ph:) Fax:( [phone]) faxed medical records. Per Denice from [facility] Pt has been accepted and service to start upon d/c day. Contact [facility] Ph: ( [phone]) spoke to [facility]. Per [facility] transportation will be between 15:30-16:00 via [email or web address]. Informed RN Franki. Addendum: 10/02/19 at 1659 by MAAME PEREZ Amended: Links added.
--- NOTE | 2019-10-02 16:55 | NUR ---
Discharge instructions given as ordered. Encourage to follow up with PMD as instructed. All questions and concerns addressed. Patient verbalized understanding. IV removed with catheter intact, pressure dressing applied,. Telemetry unit returned to ICU. Patient transported via safety care transportation with family member.
[2019-10-02 17:00] VITALS: BP 128/67
== END 2019-10-02 16:55 | disposition hospice, home (50) | DRG 436 ==
LOC: ER 17:51 → OVERFLOW 17:52 → WEST WING 23:19 → TELE-WESTW 09-29 16:33
PROVIDERS: ADMIT Nurse Practitioner; ATTEND Internal Medicine
PROC: 0FB03ZX Excision of Liver, Percutaneous Approach, Diagnostic (ICD-10-PCS; principal; 2019-09-28)
DX: C25.9 Malignant neoplasm of pancreas, unspecified (principal); C78.7 Secondary malignant neoplasm of liver and intrahepatic bile duct; N17.9 Acute kidney failure, unspecified; D50.0 Iron deficiency anemia secondary to blood loss (chronic); E86.0 Dehydration; E66.9 Obesity, unspecified; I10 Essential (primary) hypertension; E87.6 Hypokalemia; J44.9 Chronic obstructive pulmonary disease, unspecified; Z96.643 Presence of artificial hip joint, bilateral; K44.9 Diaphragmatic hernia without obstruction or gangrene; Z51.5 Encounter for palliative care; N20.0 Calculus of kidney; Z85.41 Personal history of malignant neoplasm of cervix uteri; Z86.718 Personal history of other venous thrombosis and embolism; Z86.73 Personal history of transient ischemic attack (TIA), and cerebral infarction without residual deficits; Z90.710 Acquired absence of both cervix and uterus; Z83.3 Family history of diabetes mellitus; Z82.5 Family history of asthma and other chronic lower respiratory diseases; Z80.42 Family history of malignant neoplasm of prostate; Z80.3 Family history of malignant neoplasm of breast; Z80.0 Family history of malignant neoplasm of digestive organs; Z68.35 Body mass index [BMI] 35.0-35.9, adult; Z88.8 Allergy status to other drugs, medicaments and biological substances; K59.00 Constipation, unspecified
CPT/HCPCS: 10022; 36415; 71045; 71260; 74150; 74176; 74177; 76942; 77012; 80048; 80053; 81001; 82150; 82378; 82607; 82728; 82746; 82962; 83540; 83550; 83615; 83690; 85014; 85018; 85025; 85610; 85730; 86301; 86304; 86850; 86900; 86901; 86920; 87040; 93005; 93970; 94761; G0378; J1756; J1956; J2250; J2405; J3490; J7042